=== PATIENT | male | born 2000 | race Two or more races ===

== ENCOUNTER 2024-03-06 21:36 | Emergency (ER) | payer OTHER ==
[~2024-03-06] VITALS: Ht 167.6 cm; Wt 102.1 kg
[2024-03-06 21:58] VITALS: BP 127/76; O2SAT 99
[2024-03-06] MEDS ORDERED: HUMIRA40 MG/0.2 SQ (22:01)
[2024-03-06] MEDS ORDERED: BENZONATATE 100 MG CAPSULE PO ONE (22:15)
[2024-03-06] MEDS ORDERED: LORATADINE/PSEUDOEPHEDRINE 1 TAB TAB.SR.24H PO ONE (22:15)
[2024-03-06] MEDS ORDERED: FAMOtidine 10 MG/ML (4ML VIAL) IV PUSH ONE (22:15)
[2024-03-06] MEDS ORDERED: BUTALB/ACETAMINOPHEN/CAFFEINE 1 TAB TABLET PO ONE (22:15)
[2024-03-06 23:11] LABS: HEMATOCRIT 39.8 % (39.0-48.0); MEAN CELL VOLUME 84.7 fL (80.0-100.00); MEAN CORPUSCULAR HEMOGLOBIN 29.8 pg (27.00-32.0); MEAN CORPUSCULAR HGB CONC 35.1 g/dl (32.0-36.0); PLATELET COUNT 209 K/uL (150-450); RED CELL DISTRIBUTION WIDTH 13.6 % (11.5-14.5)
[2024-03-06] MEDS ORDERED: LEVALBUTER0.63 MG/3 IH (23:33)
[2024-03-06] MEDS ORDERED: OSEL75CA PO (23:33)
[2024-03-06] MEDS ORDERED: BENZONATATE200 M1 PO (23:33)
== END 2024-03-06 23:39 | disposition home or self-care (01) ==
LOC: ER 21:38
PROVIDERS: General Practice
DX: J10.1 Influenza due to other identified influenza virus with other respiratory manifestations (principal); Z20.822 Contact with and (suspected) exposure to COVID-19; Z88.6 Allergy status to analgesic agent